=== PATIENT | female | born 1990 | race Caucasian/White ===

== ENCOUNTER 2017-05-05 10:08 | Emergency (ER) | payer BC, OTHER ==
[~2017-05-05] VITALS: Ht 160 cm; Wt 94.0 kg
[2017-05-05 10:20] VITALS: Ht 160 cm; Wt 94.0 kg
[2017-05-05] MEDS ORDERED: LIDOCAINE 1% (MDV) 20 ML INJ SC ONE (11:00)
[2017-05-05] MEDS ORDERED: DOXY100T2 PO (11:38)
[2017-05-05] MEDS ORDERED: HYDR-906 PO (11:39)
[2017-05-05] MEDS ORDERED: NAPR-260 PO (11:39)
--- NOTE | 2017-05-06 17:34 | ERD ---
ER Documentation Chief Complaint Date/Time DATE: 05/06/17 TIME: 17:30 Chief Complaint abscess on lower back its recurrent HPI This patient is a 26-year-old female with past medical history of pilonidal abscess presenting to the emergency department for recurrence of her pilonidal abscess for the past 4 days. Pain is intermittent. She states the abscess "popped" this morning. Pain is worse with sitting. Pain is relieved with ibuprofen. She states this is an intermittent chronic problem for the past 2 years. Patient denies fevers, chills, nausea, vomiting, diarrhea, chest pain, shortness breath, or other symptoms currently. ROS All systems reviewed and are negative except as per history of present illness. Medications Home Meds Active Scripts Naproxen* (Naprosyn*) 500 Mg Tablet, 500 MG PO BID Y for PAIN AND/OR INFLAMMATION, #30 TAB Prov:ZOË GUARDADO PA-C 05/05/17 Hydrocodone/Acetaminophen ([place] 5-325 Tablet) 1 Each Tablet, 1 TAB PO Q6H Y for PAIN, #10 TAB Prov:ZOË GUARDADO PA-C 05/05/17 Doxycycline* (Vibramycin*) 100 Mg Tab, 100 MG PO BID for 10 Days, #20 TAB Prov:ZOË GUARDADO PA-C 05/05/17 Allergies Allergies: Coded Allergies: No Known Allergy (Unverified , 05/05/17) PMhx/Soc History of Surgery: No Anesthesia Reaction: No Hx Neurological Disorder: No Hx Respiratory Disorders: No Hx Cardiac Disorders: No Hx Psychiatric Problems: No Hx Miscellaneous Medical Probl: Yes (Anemia) Hx Alcohol Use: No Hx Substance Use: No Hx Tobacco Use: No Smoking Status: Never smoker FmHx Noncontributory for chief complaint Physical Exam Vitals Vital Signs Date Time Temp Pulse Resp B/P Pulse Ox O2 Delivery O2 Flow Rate FiO2 05/05/17 10:20 99.0 98 18 141/89 100 Physical Exam Const: Nontoxic, well-appearing female in no apparent distress. Head: Atraumatic Eyes: Normal Conjunctiva ENT: Normal External Ears, Nose and Mouth. Neck: Full range of motion..~ No meningismus. Resp: Clear to auscultation bilaterally Cardio: Regular rate and rhythm, no murmurs Abd: Soft, non tender, non distended. Normal bowel sounds Skin: There is an approximate 2 cm x 2 cm fluctuant abscess noted to the cleft with some mild surrounding erythema. Back: No midline or flank tenderness Ext: No cyanosis, or edema Neur: Awake and alert Psych: Normal Mood and Affect Results 24 hrs Current Medications Medications (Trade) Dose Ordered Sig/Fredis Route PRN Reason Start Time Stop Time Status Last Admin Dose Admin Lidocaine (Xylocaine 1% (Mdv) 20 ml) 20 ml ONCE ONCE SC 05/05/17 11:00 05/05/17 11:01 DC Procedures/MDM 26-year-old female presents to the emergency department with flareup of her pilonidal cyst. On physical examination there is a 2 cm x 2 cm abscess noted to the cleft. The patient was given a prescription for doxycycline, naproxen, and [place]. The patient understood her discharge treatment and plan. She was advised that follow-up with dermatology may be required. She was advised to use sitz baths. Close follow-up with primary care physician advised. Follow-up to the emergency department in 48 hours advised. Strict ER return precautions discussed. Abscess Incision and Drainage with irrigation by me: Location: David cleft Anesthesia: Local 1% Lidocaine Technique: Irrigated. Disrupted loculations w/ instrumentation Packing: Packing with approximate 7 inches of iodoform gauze. Complications: Neurovascularly intact post procedure 48 hour wound check. Scar minimization instructions given. Patient's skin symptoms have stabilized while they have been evaluated in the department and are appropriate for outpatient care and work up. Exam and w/u not consistent w/ sepsis, deep space infection, or foreign body. Departure Diagnosis: Primary Impression: Pilonidal abscess of david cleft Condition: Fair Patient Instructions: Pilonidal Cyst, Infected (Incision And Drainage) Additional Instructions: Please return in 48 hours for repacking of the wound. Follow up with your PCP within the next 1-3 days for a repeat evaluation and a possible referral to a specialist, if required. Return the the emergency department immediately if symptoms worsen or change. If you have any questions regarding medications, ask your pharmacist or us before you leave. If any adverse reactions, occur while taking your medications, discontinue the treatment and return to the emergency department immediately. If any new or worsening symptoms, uncontrolled fevers, or other unexplained symptoms occur, return to the emergency department immediately. Take your medications as directed, and complete the entire course of treatment. ZOË GUARDADO PA-C May 06, 2017 17:33
== END 2017-05-05 11:46 | disposition home or self-care (01) ==
LOC: FTE 10:08
DX: L05.01 Pilonidal cyst with abscess (principal)

== ENCOUNTER 2017-05-07 16:49 | Emergency (ER) | payer BC ==
[~2017-05-07] VITALS: Ht 172.7 cm; Wt 95.5 kg
[~2017-05-07 16:49] MED LIST: DOXY100T2 PO; HYDR-906 PO; NAPR-260 PO
[2017-05-07 16:53] VITALS: Ht 172.7 cm; Wt 95.5 kg
--- NOTE | 2017-05-07 17:21 | ERD ---
ER Documentation Chief Complaint Date/Time DATE: 05/07/17 TIME: 17:18 Chief Complaint Patient here for a recheck HPI Patient is a 26-year-old female who presents to the ER for wound recheck after having an incision and drainage of a pilonidal cyst 2 days ago. She states that she has had a small amount of drainage and blood from the site. She denies fevers. She is taking naproxen, hydrocodone and doxycycline. ROS All systems reviewed and are negative except as per history of present illness. Medications Home Meds Active Scripts Naproxen* (Naprosyn*) 500 Mg Tablet, 500 MG PO BID Y for PAIN AND/OR INFLAMMATION, #30 TAB Prov:ZOË GUARDADO PA-C 05/05/17 Hydrocodone/Acetaminophen ([place] 5-325 Tablet) 1 Each Tablet, 1 TAB PO Q6H Y for PAIN, #10 TAB Prov:ZOË GUARDADO PA-C 05/05/17 Doxycycline* (Vibramycin*) 100 Mg Tab, 100 MG PO BID for 10 Days, #20 TAB Prov:ZOË GUARDADO PA-C 05/05/17 Allergies Allergies: Coded Allergies: No Known Allergy (Unverified , 05/05/17) PMhx/Soc Past medical history: Pilonidal cyst Past surgical history: Incision and drainage Social history: Denies tobacco alcohol or illicit drugs History of Surgery: No Anesthesia Reaction: No Hx Neurological Disorder: No Hx Respiratory Disorders: No Hx Cardiac Disorders: No Hx Psychiatric Problems: No Hx Miscellaneous Medical Probl: Yes (Anemia) Hx Alcohol Use: No Hx Substance Use: No Hx Tobacco Use: No FmHx Family History: No coronary disease, No diabetes Physical Exam Vitals Vital Signs Date Time Temp Pulse Resp B/P Pulse Ox O2 Delivery O2 Flow Rate FiO2 05/07/17 16:53 98.9 107 20 129/73 99 Physical Exam Const: Alert, no acute distress Head: Atraumatic Eyes: Normal Conjunctiva, no pallor, no icterus ENT: Normal External Ears, Nose and Mouth. Moist mucous membranes Resp: Clear to auscultation bilaterally Cardio: Regular rate and rhythm, no murmurs Skin: No petechiae or rashes Back: 1 cm incision in upper gluteal cleft with packing. No expressible discharge. No bleeding. No fluctuance, induration, erythema or warmth surrounding the site. Ext: No cyanosis, or edema Neur: Awake and alert Psych: Normal Mood and Affect Procedures/MDM MDM: Patient is a 26-year-old female with recent I&D of an infected pilonidal cyst. The infection appears to be resolving well. The packing was removed and there is no expressible pus. There was no bleeding. There are no signs of active infection. A new dressing was placed, and the patient is encouraged to continue with daily dressing changes until there is no further discharge. She is encouraged to perform Sitz baths daily. She is advised to follow-up with dermatology or general surgery after her symptoms have resolved. Departure Diagnosis: Primary Impression: Encounter for wound re-check Additional Impression: Pilonidal abscess Condition: Stable VENECIA GARBER MD May 07, 2017 17:21
== END 2017-05-07 18:05 | disposition home or self-care (01) ==
LOC: FTE 16:49
DX: Z48.01 Encounter for change or removal of surgical wound dressing (principal); L05.01 Pilonidal cyst with abscess
CPT/HCPCS: 99281

== ENCOUNTER 2017-07-24 20:17 | Emergency (ER) | payer BC ==
[~2017-07-24] VITALS: Ht 160 cm; Wt 96.0 kg
[2017-07-24 20:23] VITALS: Ht 160 cm; Wt 96.0 kg
[2017-07-24 21:46] LABS: BASOPHILS % 0.1 % (0.0-2.0); EOSINOPHILS # 0.2 10^3/ul (0.0-0.5); EOSINOPHILS % 1.5 % (0.0-7.0); HEMATOCRIT 35.9 % (37.0-47.0); HEMOGLOBIN 12.1 g/dl (12.0-16.0); LYMPHOCYTES # 1.1 10^3/ul (0.8-2.9); LYMPHOCYTES % 9.1 % (15.0-51.0); MEAN CORPUSCULAR HEMOGLOBIN 25.7 pg (29.0-33.0); MEAN CORPUSCULAR HGB CONC 33.7 g/dl (32.0-37.0); MEAN CORPUSCULAR VOLUME 76.2 fl (82.0-101.0); MONOCYTE # 0.6 10^3/ul (0.3-0.9); MONOCYTES % 5.3 % (0.0-11.0); NEUTROPHILS % 83.8 % (39.0-77.0); PLATELET COUNT 319 10^3/UL (140-415); RED BLOOD COUNT 4.71 10^6/ul (4.20-5.40)
[2017-07-24 22:00] LABS: ADD UMIC YES; UR ASCORBIC ACID NEGATIVE (NEGATIVE); UR BACTERIA FEW /HPF (NONE SEEN); UR BILIRUBIN (Dip) NEGATIVE (NEGATIVE); UR BLOOD (Dip) 1+ mg/dL (NEGATIVE); UR CLARITY SLIGHTLY CLOUDY (CLEAR); UR COLOR YELLOW (YELLOW); UR GLUCOSE (Dip) NEGATIVE (NEGATIVE); UR KETONES (Dip) NEGATIVE (NEGATIVE); UR LEUKOCYTE ESTERASE (Dip) TRACE Leu/ul (NEGATIVE); UR MUCUS FEW /HPF (NONE SEEN); UR NITRITE (Dip) NEGATIVE (NEGATIVE); UR RBC 1 /HPF (0-5); UR SPECIFIC GRAVITY (Dip) 1.015 (1.003-1.030); UR SQUAMOUS EPITHELIAL CELL FEW /HPF (FEW); UR TOTAL PROTEIN (Dip) NEGATIVE (NEGATIVE); UR UROBILINOGEN (Dip) NEGATIVE (NEGATIVE)
[2017-07-24 22:15] LABS: ALBUMIN/GLOBULIN RATIO 1.05; BILIRUBIN,INDIRECT 0.2 mg/dl (0-1.1); BILIRUBIN,TOTAL 0.2 mg/dl (0.2-1.3); CALCIUM 9.5 mg/dl (8.4-10.2); CREATININE 0.72 mg/dl (0.44-1.00); POTASSIUM 3.8 mmol/L (3.5-5.1); TOTAL PROTEIN 7.8 g/dl (6.1-8.1)
--- NOTE | 2017-07-24 23:11 | RADRPT ---
PROCEDURE: CT ABDOMEN AND PELVIS WITHOUT CONTRAST: CLINICAL INDICATION: 26 years of age, female , abdominal pain. COMPARISON: None available. TECHNIQUE: CT of the abdomen and pelvis was performed without intravenous contrast. Oral contrast wa s not administered prior to the examination. Coronal and sagittal reformatted images were obtained from the axial source images. Images were revi ewed on a high-resolution PACS workstation. Dose information: Based on a 32 cm phantom, the estimated radiation dose (CTDIvol mGy) for each seri es in this exam is 17.6. The estimated cumulative dose (DLP mGy-cm) is 958. One or more of the following dose reduction techniques were used: - Automated exposure control. - Adjustment of the mA and/or kV according to patient size. - Use of iterative reconstruction technique. FINDINGS: In the absence of intravenous contrast, the study constitutes a limited assessment of the solid orga ns, bowel and vessels. LUNG BASES: Normal noncontrast appearance. ABDOMEN/PELVIS: Liver: Normal noncontrast appearance. Gallbladder: Normal noncontrast appearance. Bile ducts: No intrahepatic or extrahepatic biliary duct dilatation. Spleen: Normal noncontrast appearance. Pancreas: Normal noncontrast appearance. Adrenal glands: Normal noncontrast appearance. Kidneys and ureters: Normal noncontrast appearance. Negative for urinary calculi or hydronephrosis. Aorta and IVC: Normal noncontrast appearance. Lymph nodes: Normal noncontrast appearance. Gastrointestinal tract: Stomach is moderately distended from a recent meal. Remaining bowel loops ar e decompressed and appear normal. Appendix: Normal Bladder: Normal noncontrast appearance. Pelvic Organs: The uterus and adnexa are unremarkable. Peritoneal cavity: No free fluid or free intraperitoneal air. Abdominal wall: Normal noncontrast appearance. BONES: Musculoskeletal: No suspicious bone lesions. IMPRESSION: Unremarkable CT of the abdomen, and pelvis without contrast. Cause for abdominal pain is not evident . RPTAT: HCTS Physician Theo Date Time Electronically viewed and signed by Physician Theo on 07/24/2017 23:10 CS/
[2017-07-24] MEDS ORDERED: CIPR500T4 PO (23:16)
[2017-07-24 23:26] VITALS: BP 129/83; PULSE 89; RESP 16
--- NOTE | 2017-07-25 00:12 | ERD ---
ER Documentation Chief Complaint Date/Time DATE: 07/25/17 TIME: 00:09 Chief Complaint AP and vomiting x2 hours HPI 26-year-old female coming in complaining of abdominal pain 2 days. Last bowel movement was today. Patient states that she is taking DayQuil and Pepto-Bismol for symptoms with mild alleviation. Patient states the pain comes and goes she did have one episode of vomiting today. She does not know what causes the pain to develop and to resolve. She denies any chest pains or shortness of breath. States she may have some dysuria but is unsure. Denies back pain. Last normal menstrual period was 4 weeks ago. ROS All systems reviewed and are negative except as per history of present illness. Medications Home Meds Active Scripts Ciprofloxacin Hcl* (Ciprofloxacin Hcl*) 500 Mg Tablet, 500 MG PO BID for 7 Days , TAB Prov:ROSENDO GRANADO PA-C 07/24/17 Naproxen* (Naprosyn*) 500 Mg Tablet, 500 MG PO BID Y for PAIN AND/OR INFLAMMATION, #30 TAB Prov:ZOË GUARDADO PA-C 05/05/17 Hydrocodone/Acetaminophen ([place] 5-325 Tablet) 1 Each Tablet, 1 TAB PO Q6H Y for PAIN, #10 TAB Prov:ZOË GUARDADO PA-C 05/05/17 Doxycycline* (Vibramycin*) 100 Mg Tab, 100 MG PO BID for 10 Days, #20 TAB Prov:ZOË GUARDADO PA-C 05/05/17 Allergies Allergies: Coded Allergies: No Known Allergy (Unverified , 05/05/17) PMhx/Soc Medical and Surgical Hx: pt denies Medical Hx, pt denies Surgical Hx History of Surgery: No Anesthesia Reaction: No Hx Neurological Disorder: No Hx Respiratory Disorders: No Hx Cardiac Disorders: No Hx Psychiatric Problems: No Hx Miscellaneous Medical Probl: Yes (Anemia) Hx Alcohol Use: No Hx Substance Use: No Hx Tobacco Use: No Smoking Status: Never smoker Physical Exam Vitals Vital Signs Date Time Temp Pulse Resp B/P Pulse Ox O2 Delivery O2 Flow Rate FiO2 07/24/17 23:26 89 16 129/83 100 Room Air 07/24/17 20:23 99.0 95 20 128/86 100 Physical Exam GENERAL: The patient is well-appearing, well-nourished, in no acute distress CHEST: Clear to auscultation bilaterally. There are no rales, wheezes or rhonchi. HEART: Regular rate and rhythm. No murmurs, clicks, rubs or gallops. No S3 or S4. ABDOMEN: Soft, nondistended. Normal bowel sounds. No rebound tenderness. Generalized tenderness to palpation. No right lower left lower quadrant pain. No rigidity. No organomegaly BACK: No midline or flank tenderness. SKIN: There is no apparent rash or petechiae. The skin is warm and dry. Result Diagram: 07/24/17213107/24/172131 Results 24 hrs Laboratory Tests Test 07/24/17 21:32 White Blood Count 12.010^3/ul Red Blood Count 4.7110^6/ul Hemoglobin 12.1g/dl Hematocrit 35.9% Mean Corpuscular Volume 76.2fl Mean Corpuscular Hemoglobin 25.7pg Mean Corpuscular Hemoglobin Concent 33.7g/dl Red Cell Distribution Width 13.0% Platelet Count 03345^3/UL Mean Platelet Volume 11.0fl Neutrophils % 83.8% Lymphocytes % 9.1% Monocytes % 5.3% Eosinophils % 1.5% Basophils % 0.1% Nucleated Red Blood Cells % 0.0/100WBC Neutrophils # (Manual) 10.110^3/ul Lymphocytes # 1.110^3/ul Monocytes # 0.610^3/ul Eosinophils # 0.210^3/ul Basophils # 0.010^3/ul Nucleated Red Blood Cells # 0.010^3/ul Urine Color YELLOW Urine Clarity SLIGHTLY CLOUDY Urine pH 5.0 Urine Specific [place] 1.015 Urine Ketones NEGATIVEmg/dL Urine Nitrite NEGATIVEmg/dL Urine Bilirubin NEGATIVEmg/dL Urine Urobilinogen NEGATIVEmg/dL Urine Leukocyte Esterase TRACELeu/ul Urine Microscopic RBC 1/HPF Urine Microscopic WBC 4/HPF Urine Squamous Epithelial Cells FEW/HPF Urine Bacteria FEW/HPF Urine Mucus FEW/HPF Urine Hemoglobin 1+mg/dL Urine Glucose NEGATIVEmg/dL Urine Total Protein NEGATIVEmg/dl Sodium Level 138mmol/L Potassium Level 3.8mmol/L Chloride Level 104mmol/L Carbon Dioxide Level 26mmol/L Anion Gap 12 Blood Urea Nitrogen 7mg/dl Creatinine 0.72mg/dl Glucose Level 128mg/dl Calcium Level 9.5mg/dl Total Bilirubin 0.2mg/dl Direct Bilirubin 0.00mg/dl Indirect Bilirubin 0.2mg/dl Aspartate Amino Transf (AST/SGOT) 27IU/L Alanine Aminotransferase (ALT/SGPT) 29IU/L Alkaline Phosphatase 69IU/L Total Protein 7.8g/dl Albumin 4.0g/dl Globulin 3.80g/dl Albumin/Globulin Ratio 1.05 Lipase 279U/L Serum HCG, Qualitative NEGATIVE Procedures/MDM DIAGNOSTIC IMAGING REPORT Patient: DENA KNIGHT : 1990 Age: 26 Sex: F MR #: [id number] DOS: 07/24/172116 Ordering MD: NANCY GRANADO PA-C Location: [facility] Room/Bed: PROCEDURE: CT ABDOMEN AND PELVIS WITHOUT CONTRAST: CLINICAL INDICATION: 26 years of age, female , abdominal pain. COMPARISON: None available. TECHNIQUE: CT of the abdomen and pelvis was performed without intravenous contrast. Oral contrast was not administered prior to the examination. Coronal and sagittal reformatted images were obtained from the axial source images. Images were reviewed on a high-resolution PACS workstation. Dose information: Based on a 32 cm phantom, the estimated radiation dose ( CTDIvol mGy) for each series in this exam is 17.6. The estimated cumulative dose (DLP mGy-cm) is 958. One or more of the following dose reduction techniques were used: - Automated exposure control. - Adjustment of the mA and/or kV according to patient size. - Use of iterative reconstruction technique. FINDINGS: In the absence of intravenous contrast, the study constitutes a limited assessment of the solid organs, bowel and vessels. LUNG BASES: Normal noncontrast appearance. ABDOMEN/PELVIS: Liver: Normal noncontrast appearance. Gallbladder: Normal noncontrast appearance. Bile ducts: No intrahepatic or extrahepatic biliary duct dilatation. Spleen: Normal noncontrast appearance. Pancreas: Normal noncontrast appearance. Adrenal glands: Normal noncontrast appearance. Kidneys and ureters: Normal noncontrast appearance. Negative for urinary calculi or hydronephrosis. Aorta and IVC: Normal noncontrast appearance. Lymph nodes: Normal noncontrast appearance. Gastrointestinal tract: Stomach is moderately distended from a recent meal. Remaining bowel loops are decompressed and appear normal. Appendix: Normal Bladder: Normal noncontrast appearance. Pelvic Organs: The uterus and adnexa are unremarkable. Peritoneal cavity: No free fluid or free intraperitoneal air. Abdominal wall: Normal noncontrast appearance. BONES: Musculoskeletal: No suspicious bone lesions. IMPRESSION: Unremarkable CT of the abdomen, and pelvis without contrast. Cause for abdominal pain is not evident. MDM:26-year-old female coming in complaining of generalized abdominal pain. I have low suspicion for appendicitis or bowel obstruction. I have low suspicion for pelvic emergency. Patient did not have a pelvic pain on exam. A low suspicion for pyelonephritis as patient does not have CVA tenderness and vital signs are stable. Patient does have possible UTI on urine dip I will treat for infection. I have low suspicion for choledocholithiasis, cholecystitis, cholangitis, or pancreatitis. Patient does not have right upper quadrant pain on exam, CT scan is within normal limits and blood work is within normal limits. Patient is discharged with antibiotics and given strict ER precautions. Patient is told symptoms change or worsen to return to the ER. Departure Diagnosis: Primary Impression: UTI (urinary tract infection) Condition: Stable Patient Instructions: Understanding Urinary Tract Infections (UTIs) Additional Instructions: FOLLOW UP WITH YOUR PRIMARY CARE PHYSICIAN TOMORROW.Return to this facility if you are not improving as expected. ROSENDO GRANADO PA-C Jul 25, 2017 00:12
== END 2017-07-24 23:27 | disposition home or self-care (01) ==
LOC: FTE 20:17
DX: N39.0 Urinary tract infection, site not specified (principal)
CPT/HCPCS: 36415; 74176; 80053; 81001; 83690; 84703; 85025

== ENCOUNTER 2017-08-30 10:43 | Emergency (ER) | payer BC ==
[~2017-08-30] VITALS: Ht 162.6 cm; Wt 89.0 kg
[~2017-08-30 10:43] MED LIST changes: +CIPR500T4 PO
[2017-08-30 10:48] VITALS: Ht 162.6 cm; Wt 89.0 kg
[2017-08-30] MEDS ORDERED: LIDOCAINE 1% (MDV) 20 ML INJ SC ONE (13:30)
[2017-08-30] MEDS ORDERED: IBUPROFEN 600 MG TAB PO ONE (13:30)
[2017-08-30] MEDS ORDERED: DIPHTH/TET/ACEL PERTUSS (ADULT) 0.5 ML VIAL IM* ONE (13:30)
[2017-08-30] MEDS ORDERED: HYDR-906 PO (13:52)
[2017-08-30] MEDS ORDERED: SULF1TAB31 PO (13:52)
[2017-08-30] MEDS ORDERED: CEPH-443 PO (13:53)
--- NOTE | 2017-08-30 14:08 | ERD ---
ER Documentation Chief Complaint Date/Time DATE: 08/30/17 TIME: 14:05 Chief Complaint ABCESS BETWEEN BUTTOCKS HPI Patient is a 26-year-old female with past medical history of a pilonidal abscess presents emergency department for concerns of recurrence of pilonidal abscess. Patient states for a week she is had a "pulled large sensation in between her buttocks". Patient reports drainage which started earlier this morning. Patient states the drainage is yellow. Denies any fevers or chills. Patient denies any nausea, vomiting, chest pain, shortness or breath or LOC. She does not recall her last tetanus vaccination. Of note, patient recently completed a course of ciprofloxacin for UTI. Patient denies any dysuria or hematuria. Patient states her last menstrual period was 1 week ago. ROS All systems reviewed and are negative except as per history of present illness. Medications Home Meds Active Scripts Cephalexin* (Keflex*) 500 Mg Capsule, 500 MG PO TID for 10 Days, CAP Prov:MARIA LUZ LEONARD PA-C 08/30/17 Sulfamethoxazole/Trimethoprim* (Bactrim Ds* Tablet) 1 Each Tablet, 1 TAB PO BID , #20 TAB Prov:MARIA LUZ LEONARD PA-C 08/30/17 Hydrocodone/Acetaminophen ([place] 5-325 Tablet) 1 Each Tablet, 1 TAB PO Q6H Y for PAIN, #10 TAB Prov:MARIA LUZ LEONARD PA-C 08/30/17 Ciprofloxacin Hcl* (Ciprofloxacin Hcl*) 500 Mg Tablet, 500 MG PO BID for 7 Days , TAB Prov:ROSENDO GRANADO PA-C 07/24/17 Naproxen* (Naprosyn*) 500 Mg Tablet, 500 MG PO BID Y for PAIN AND/OR INFLAMMATION, #30 TAB Prov:ZOË GUARDADO PA-C 05/05/17 Hydrocodone/Acetaminophen ([place] 5-325 Tablet) 1 Each Tablet, 1 TAB PO Q6H Y for PAIN, #10 TAB Prov:ZOË GUARDADO PA-C 05/05/17 Doxycycline* (Vibramycin*) 100 Mg Tab, 100 MG PO BID for 10 Days, #20 TAB Prov:ZOË GUARDADO PA-C 05/05/17 Allergies Allergies: Coded Allergies: No Known Allergy (Unverified , 05/05/17) PMhx/Soc History of Surgery: No Anesthesia Reaction: No Hx Neurological Disorder: No Hx Respiratory Disorders: No Hx Cardiac Disorders: No Hx Psychiatric Problems: No Hx Miscellaneous Medical Probl: Yes (Anemia) Hx Alcohol Use: No Hx Substance Use: No Hx Tobacco Use: No Smoking Status: Unknown if ever smoked FmHx Family History: No diabetes Physical Exam Vitals Vital Signs Date Time Temp Pulse Resp B/P Pulse Ox O2 Delivery O2 Flow Rate FiO2 08/30/17 10:48 98.1 89 18 143/68 99 Physical Exam GENERAL: Well-developed, well-nourished female. Appears in no acute distress. HEAD: Normocephalic, atraumatic. EYES: Pupils are equally reactive bilaterally. EOMs grossly intact. No conjunctival erythema. ENT: Moist mucous membranes. No uvula deviation. No kissing tonsils. NECK: Supple. No meningismus. Normal range of motion of the neck. LUNG: Clear to auscultation bilaterally. No rhonchi, wheezing, rales or coarse breath sounds. HEART: Regular rate and rhythm. No murmurs, rubs or gallops. BACK: No midline tenderness. EXTREMITIES: Equal pulses bilaterally. No peripheral clubbing, cyanosis or edema. No unilateral leg swelling. NEUROLOGIC: Alert and oriented. Moving all four extremities without any difficulty. Normal speech. Steady gait. SKIN: 3 cm circular abscess noted in the gluteal cleft, actively draining Results 24 hrs Current Medications Medications (Trade) Dose Ordered Sig/Fredis Route PRN Reason Start Time Stop Time Status Last Admin Dose Admin Lidocaine (Xylocaine 1% (Mdv) 20 ml) 20 ml ONCE ONCE SC 08/30/17 13:30 08/30/17 13:31 DC Diphtheria/ Tetanus/Acell Pertussis (Adacel) 0.5 ml ONCE ONCE IM* 08/30/17 13:30 08/30/17 13:31 DC 08/30/17 13:37 Ibuprofen (Motrin) 600 mg ONCE ONCE PO 08/30/17 13:30 08/30/17 13:31 DC 08/30/17 13:36 Procedures/MDM ED COURSE: The patient was stable throughout ED course. I kept the patient and/or family informed of laboratory and diagnostic imaging results throughout the ED course. PROCEDURES: INCISION AND DRAINAGE: The patient was verbally consented prior to procedure. Patient was explained the risks, benefits and alternatives to this procedure. Location: pilonidal cyst Abscess size: 3 cm Anesthesia: local 1% lidocaine, 5 cc Preparation: The area was prepped in a sterile fashion using betadine x3 cleanses. A sterile field was prepared. Technique: A sterile 11 blade scalpel was used to make a 1 cm linear incision into the abscess. Procedure: A midline abscess incision was made using a sterile scalpel in a linear fashion. Purulent material was expressed with direct pressure. Blunt probing was used to break up loculations. Bleeding was minimal. Packing: half iodoform packing was placed into the wound. The patient tolerated the procedure well with no complications. The wound was dressed in sterile gauze. The patient was neurovascularly intact post- procedure. Post-procedural wound care was discussed with the patient. MEDICATIONS GIVEN: Ibuprofen, Tdap Patient tolerated medication well with no adverse reactions. Patient reported improvement in pain. MEDICAL DECISION MAKING: Patient is a 26-year-old female who presents to the ED for concerns of an abscess in her upper gluteal cleft. Patient does admit to history of pilonidal abscesses in the past.. Vital signs were reviewed. Patient is afebrile. Patient was not hypoxic. Incision and drainage was performed here in the emergency department. An incision and drainage was performed here in the emergency department. Purulent discharge was expressed from the affected site. Packing was placed. Patient was advised to return in 2 days for wound recheck. Patient will be discharged home with a prescription for Keflex and Bactrim as well as pain medication. At this time, patient's presentation is most consistent with pilonidal abscess. Low suspicion for deep space infection, sacral fracture, fissure, no rectal abscess, perirectal abscess. PRESCRIPTION: Keflex, Bactrim, [place] DISCHARGE: At this time, patient is stable for discharge and outpatient management. She was advised to return to the ED in 2 days for wound recheck. I have discussed with the patient the possibility of needing to see a specialist for further workup and imaging studies if symptoms persist. I have instructed the patient to promptly return to the ER for any new or worsening symptoms including increased pain, fever, nausea, vomiting, weakness or LOC. The patient and/or family expressed understanding of and agreement with this plan. All questions were answered. Home care instructions were provided. Disclaimer: Inadvertent spelling and grammatical errors are likely due to EHR/ dictation software use and do not reflect on the overall quality of patient care. Also, please note that the electronic time recorded on this note does not necessarily reflect the actual time of the patient encounter. Departure Diagnosis: Primary Impression: Pilonidal abscess of david cleft Condition: Stable Patient Instructions: Pilonidal Cyst, Infected (Incision And Drainage) Referrals: RENATA AMADO (PCP) Additional Instructions: Return to the emergency department 3 days for wound recheck. Start antibiotics today. Call your primary care doctor TOMORROW for an appointment during the next 1-2 days.See the doctor sooner or return here if your condition worsens before your appointment time. MARIA LUZ LEONARD PA-C Aug 30, 2017 14:08
== END 2017-08-30 14:09 | disposition home or self-care (01) ==
LOC: FTE 10:43
DX: L05.01 Pilonidal cyst with abscess (principal); Z23 Encounter for immunization
CPT/HCPCS: 90471; 90715

== ENCOUNTER 2017-09-01 19:11 | Emergency (ER) | payer BC ==
[~2017-09-01] VITALS: Ht 160 cm; Wt 94.5 kg
[~2017-09-01 19:11] MED LIST changes: +CEPH-443 PO; +SULF1TAB31 PO
[2017-09-01 19:14] VITALS: Ht 160 cm; Wt 94.5 kg
--- NOTE | 2017-09-01 22:22 | ERD ---
ER Documentation Chief Complaint Date/Time DATE: 09/01/17 TIME: 22:19 Chief Complaint wound check had incision and drainage of abscess 2 days ago HPI This 26-year-old female presents for a scheduled 2 day wound check following incision and drainage of an upper buttock abscess. She has had only discomfort because of the bandage but has had no pain or purulent discharge. Is feeling otherwise well with no fevers. ROS All systems reviewed and are negative except as per history of present illness. Medications Home Meds Active Scripts Cephalexin* (Keflex*) 500 Mg Capsule, 500 MG PO TID for 10 Days, CAP Prov:MARIA LUZ LEONARD PA-C 08/30/17 Sulfamethoxazole/Trimethoprim* (Bactrim Ds* Tablet) 1 Each Tablet, 1 TAB PO BID , #20 TAB Prov:MARIA LUZ LEONARD PA-C 08/30/17 Hydrocodone/Acetaminophen ([place] 5-325 Tablet) 1 Each Tablet, 1 TAB PO Q6H Y for PAIN, #10 TAB Prov:MARIA LUZ LEONARD PA-C 08/30/17 Ciprofloxacin Hcl* (Ciprofloxacin Hcl*) 500 Mg Tablet, 500 MG PO BID for 7 Days , TAB Prov:ROSENDO GRANDAO PA-C 07/24/17 Naproxen* (Naprosyn*) 500 Mg Tablet, 500 MG PO BID Y for PAIN AND/OR INFLAMMATION, #30 TAB Prov:ZOË GUARDADO PA-C 05/05/17 Hydrocodone/Acetaminophen ([place] 5-325 Tablet) 1 Each Tablet, 1 TAB PO Q6H Y for PAIN, #10 TAB Prov:ZOË GUARDADO PA-C 05/05/17 Doxycycline* (Vibramycin*) 100 Mg Tab, 100 MG PO BID for 10 Days, #20 TAB Prov:ZOË GUARDADO PA-C 05/05/17 Allergies Allergies: Coded Allergies: No Known Allergy (Unverified , 05/05/17) PMhx/Soc Medical and Surgical Hx: pt denies Surgical Hx History of Surgery: No Anesthesia Reaction: No Hx Neurological Disorder: No Hx Respiratory Disorders: No Hx Cardiac Disorders: No Hx Psychiatric Problems: No Hx Miscellaneous Medical Probl: Yes (Anemia) Hx Alcohol Use: No Hx Substance Use: No Hx Tobacco Use: No Physical Exam Vitals Vital Signs Date Time Temp Pulse Resp B/P Pulse Ox O2 Delivery O2 Flow Rate FiO2 09/01/17 19:14 98.4 83 20 123/78 98 Physical Exam Const: [] No distress Back: Small well-healing 2 cm incision with no fluctuance or tenderness. Packing is barely hanging out of it. No signs of surrounding infection. Procedures/MDM Well-healing upper buttock abscess. Signs of infection. Remove the packing and dressing was placed. Discharge with primary care follow-up in 2-3 days. Departure Diagnosis: Primary Impression: Encounter for wound re-check Condition: Stable Patient Instructions: Wound Check, Lac F/U (No Infection) Referrals: RENATA AMADO (PCP) Additional Instructions: Call your primary care doctor TOMORROW for an appointment during the next 2-3 days.See the doctor sooner or return here if your condition worsens before your appointment time. YARY AGUILERA DO Sep 01, 2017 22:22
== END 2017-09-01 22:21 | disposition home or self-care (01) ==
LOC: FTE 19:11
DX: Z48.01 Encounter for change or removal of surgical wound dressing (principal)
CPT/HCPCS: 99281